=== PATIENT | male | born 1980 | race Hispanic/Latino ===

== ENCOUNTER 2019-01-19 04:01 | Emergency (ER) | payer OTHER ==
[2019-01-19] MEDS ORDERED: FLUORESCEIN SODIUM 1 STRIP STRIP ONE (04:10)
[2019-01-19] MEDS ORDERED: TETRACAINE HCL 0.5% 4 ML OPHTH SOLN ONE (04:10)
[2019-01-19] MEDS ORDERED: ACETAMINOPHEN EXTRA STRENGTH 500 MG TABLET ONE (05:31)
[2019-01-19] MEDS ORDERED: IBUPROFEN 600 MG TABLET ONE (05:31)
[2019-01-19] MEDS ORDERED: ERYTHROMYCIN BASE 0.5% OPHTH OINT 1 GM TUBE ONE (05:32)
== END 2019-01-19 05:59 | disposition home or self-care (01) ==
LOC: EDH 04:01
DX: T15.02XA Foreign body in cornea, left eye, initial encounter (principal); Z72.0 Tobacco use; Z90.49 Acquired absence of other specified parts of digestive tract; X58.XXXA Exposure to other specified factors, initial encounter; Y93.89 Activity, other specified; Y92.89 Other specified places as the place of occurrence of the external cause; Y99.8 Other external cause status
CPT/HCPCS: 65220

== ENCOUNTER 2019-09-04 04:47 | Emergency (ER) | payer SELFPAY ==
[2019-09-04] MEDS ORDERED: MAG HYDROX/AL HYDROX/SIMETH ES 30 ML SUSP UDCUP ONE (05:07)
[2019-09-04] MEDS ORDERED: LIDOCAINE HCL 2% VISCOUS 15 ML UDCUP ONE (05:07)
== END 2019-09-04 05:59 | disposition home or self-care (01) ==
LOC: EDH 04:47
DX: R10.13 Epigastric pain (principal); F31.9 Bipolar disorder, unspecified; Z90.49 Acquired absence of other specified parts of digestive tract; Z72.0 Tobacco use